=== PATIENT | female | born 1955 | race Caucasian/White ===

== ENCOUNTER 2022-05-18 09:13 | Outpatient (CLI) | payer MEDICARE, BC, SELFPAY | END 2022-05-18 09:14 | disposition home or self-care (01) | LOC: NFLDREF 05-19 00:17 | PROVIDERS: PCP Physician Assistant Medical; Referring Provider Physician Assistant Medical; Visit Provider Physician Assistant Medical | DX: Z00.00 Encounter for general adult medical examination without abnormal findings (principal); L98.9 Disorder of the skin and subcutaneous tissue, unspecified; E78.00 Pure hypercholesterolemia, unspecified | CPT/HCPCS: 80053; 80061 ==

== ENCOUNTER 2023-05-23 09:41 | Outpatient (CLI) | payer MEDICARE, BC, SELFPAY ==
--- OUTSIDE RECORDS SUMMARY | 2023-05-27 09:29 | XMS_ITS | Referral Summary ---
Author Name Unknown Organization [facility] Address [address] [place] [address] Care Team Providers Care Improvement Advisor Name Role Phone Amie Benavides Ilana Najera MD Primary Care Provider Allergies Active Allergy Reactions Criticality Noted Date Comments No Known Drug Allergy 03/19/2003 Medications Medication Sig Dispensed Refills Start Date End Date Status CALCIUM + D 400-133.3 MG-IU OR TABS 1 tablet daily 03/19/2003 Active VITAMIN E 400 IU OR CAPS 1 tablet daily 03/19/2003 Active FLEXERIL 10 MG OR TABS 1 po qhs 30 0 03/19/2003 Active Social History Tobacco Use Types Packs/Day Years Used Date Smoking Tobacco: Never Alcohol Use Standard Drinks/Week Comments Yes 0 (1 standard drink = 0.6 oz pur e alcohol) 1-2 per week Adolescent Education Answer Date Record ed Getting School Help Needed Not on file 11/21 Sex and Gender Information Value Date Recorded Sex Assigned at Female 02/04/2022 11:46 AM BUSINESS OBJECTS DEVELOPER Gender Identity Female 02/04/2022 11:46 AM BUSINESS OBJECTS DEVELOPER Sexual Orientation Straight 02/04/2022 11 :46 AM BUSINESS OBJECTS DEVELOPER Last Filed Vital Signs Vital Sign Reading Time Taken Comments Blood Pressure 151/89 05/16/2015 12:45 PM CDT Pulse 85 05/16/2015 12:45 PM CDT Temperature 36.4 ??C (97.6 ??F) 05/16/2015 10:12 AM C DT Respiratory Rate 20 05/16/2015 12:45 PM CDT Oxygen Saturation 96% 05/16/2015 12:30 PM CDT Inhaled Oxygen Concentration - - Weight 61.2 kg (135 lb) 05/16/2015 10:12 AM CDT Height 165.1 cm (5' 5) 05/16/2015 10:12 AM CDT Body Mass Index 22.47 05/16/2015 10:12 AM CDT Plan of Treatment Not on file Procedures Procedure Name Priority Date/Time Associated Diagnosis Comments GYNECOLOGIC CYTOLOGY Routine 04/01/2022 9:38 AM BUSINESS OBJECTS DEVELOPER Encounter for gynecological examination (general) (routine) without abnormal findings [ICD-10-CM] MA SCREENING BILATERAL W/ YUSUF Routine 02/23/2022 10:41 AM BUSINESS OBJECTS DEVELOPER Visit for screening mammogram from Last 3 Months or Most Recently Relevant to Health Maintenance Results * Gynecologic Cytology (PAP) (04/01/2022 9:38 AM BUSINESS OBJECTS DEVELOPER) Interpretation Negative for Intraepithelial Lesion or Malignancy (NILM) 04/05/2022 9:51 AM BUSINESS OBJECTS DEVELOPER [facility] Comment Papanicolaou Test Limitations: Cervical cytology is a screening test with limited sensitivity, and regular screening is critical for cancer prevention. Pap tests are primarily effective for the diagnosis/prevent ion of squamous cell carcinoma, not adenocarcinoma or other cancers. 04/05/2022 9:51 AM BUSINESS OBJECTS DEVELOPER [facility] Specimen Adequacy Satisfactory for evaluation, endocerv/transfor mation zone component absent, atrophy 04/05/2022 9:51 AM BUSINESS OBJECTS DEVELOPER [facility] Clinical Information post-menopausal 04/05/2022 9:51 AM BUSINESS OBJECTS DEVELOPER [facility] LMP/Menopause Date na 04/05/2022 9:51 AM BUSINESS OBJECTS DEVELOPER [facility] Reflex Testing Yes if ASCUS 04/05/19 9:51 AM BUSINESS OBJECTS DEVELOPER [facility] Previous Abnormal? No 04/05/2022 9:51 AM BUSINESS OBJECTS DEVELOPER [facility] Previous Abnormal Diagnosis lps 2019 neg 04/05/2022 9:51 AM BUSINESS OBJECTS DEVELOPER [facility] Performing Labs The technical component of this testing was completed at [facility] 04/05/2022 9:51 AM BUSINESS OBJECTS DEVELOPER [facility] Brushing CERVIX UTERI STRUCTURE / Unknown 04/01/2022 9:38 AM BUSINESS OBJECTS DEVELOPER 04/01/2022 3:44 PM BUSINESS OBJECTS DEVELOPER Amie ZENG [facility] [address] [facility], [address] [address], [facility] [phone] * MA Screen Bilateral w/Yusuf (02/23/2022 10:41 AM BUSINESS OBJECTS DEVELOPER) Anatomical Region Laterality Modality Breast Bilateral Mammography Impressions 02/23/2022 1:10 PM BUSINESS OBJECTS DEVELOPER IMPRESSION: ACR BI-RADS Category 1: Negative RECOMMENDED FOLLOW-UP: Annual routine screening mammogram The results and recommendations of this examination will be communicated to the patient. Karthikeyan Wooten MD Narrative 02/23/2022 1:10 PM BUSINESS OBJECTS DEVELOPER BILATERAL FULL FIELD DIGITAL SCREENING MAMMOGRAM WITH TOMOSYNTHESIS Performed on: 02/23/22 Compared to: 02/19/2021 and 10/14/2015 Technique: ??This study was evaluated with the assistance of Computer-Aided Detection. ??Breast Tomosynthesis was used in interpretation. Findings: The breasts are heterogeneously dense, which may obscure small masses. ??There is no radiographic evidence of malignancy. Amie Benavides MD IMG M AMMOGRAPHY ORDERABLES from Last 3 Months or Most Recently Relevant to Health Maintenance Care Teams Improvement Advisor Relationship Specialty Start Date End Date Amie Benavides MD [address] [place] [id number] PCP - General bone glue maker 12/23/16
--- OUTSIDE RECORDS SUMMARY | 2023-05-27 09:29 | XMS_ITS | Clinical Summary ---
Author Name Unknown Organization [facility] Address [address] [place] [address] Care Team Providers Care Entry Level Buyer Name Role Phone Amie Benavides Ilana Najera [...] Sex Assigned at Female 02/04/2022 11:46 AM INTELLIGENCE SUPPORT OFFICER Gender Identity Female 02/04/2022 11:46 AM INTELLIGENCE SUPPORT OFFICER Sexual Orientation Straight 02/04/2022 11 :46 AM INTELLIGENCE SUPPORT OFFICER Last Filed Vital Signs Vital Sign Reading [...] 05/16/2015 10:12 AM CDT Plan of Treatment Health Maintenance Due Date Last Done Comments ADVANCE CARE PLANNING 1955 ANNUAL REVIEW OF HM ORDERS 1955 CT COLONOGRAPHY 1955 DEXA 1955 FIT 1955 FLEX SIG 1955 GLUCOSE 1955 sDNA (Cologuard) 1955 COLONOSCOPY 04/18/1965 COLORECTAL CANCER SCREENING 04/18/1965 HEPATITIS C SCREENING 04/18/1973 LIPID 1995 RSV VACCINE ( & 60+) (1 - 1-dose 60+ series) 2015 FALL RISK ASSESSMENT 04/18/2020 MEDICARE ANNUAL WELLNESS VISIT 04/18/2020 Pneumococcal Vaccine: 65+ Years (1 of 1 - PCV) 04/18/2020 COVID-19 Vaccine ( season) 2022 12/11/2021, 12/10/2020, 05/09/2020, Additional history exists INFLUENZA VACCINE (#1) 2022 , 02/05/2021, 12/16/2019, Additional history exists PHQ-2 (once per calendar year) 2023 MAMMO SCREENING 02/24/2024 02/23/2022, /0 07/2021, 02/19/2020, Additional history exists DTAP/TDAP/TD IMMUNIZATION (2 - Td or Tdap) 01/17/2028 01/16/2018 ZOSTER IMMUNIZATION Completed 09/18/2019, 09/15/2019, 03/28/2019 PAP Discontinued 04/01/2022 HPV IMMUNIZATION Aged Out No longer e ligible based on patient's age to complete this topic IPV IMMUNIZATION Aged Out No longer e ligible based on patient's age to complete this topic MENINGITIS IMMUNIZATION Aged Out No l onger eligible based on patient's age to complete this topic RSV MONOCLONAL ANTIBODY Aged Out No l onger eligible based on patient's age to complete this topic Procedures Procedure Name Priority Date/Time Associated Diagnosis Comments GYNECOLOGIC CYTOLOGY Routine 04/01/2022 9:38 AM INTELLIGENCE SUPPORT OFFICER Encounter for gynecological examination (general) (routine) without abnormal findings [ICD-10-CM] MA SCREENING BILATERAL W/ YUSUF Routine 02/23/2022 10:41 AM INTELLIGENCE SUPPORT OFFICER Visit for screening mammogram from Last 3 Months or Most Recently Relevant to Health Maintenance Results * Gynecologic Cytology (PAP) (04/01/2022 9:38 AM INTELLIGENCE SUPPORT OFFICER) Interpretation Negative for Intraepithelial Lesion or Malignancy (NILM) 04/05/2022 9:51 AM INTELLIGENCE SUPPORT OFFICER [facility] Comment Papanicolaou Test Limitations: Cervical cytology is a screening test with limited sensitivity, and regular screening is critical for cancer prevention. Pap tests are primarily effective for the diagnosis/prevent ion of squamous cell carcinoma, not adenocarcinoma or other cancers. 04/05/2022 9:51 AM INTELLIGENCE SUPPORT OFFICER [facility] Specimen Adequacy Satisfactory for evaluation, endocerv/transfor mation zone component absent, atrophy 04/05/2022 9:51 AM INTELLIGENCE SUPPORT OFFICER [facility] Clinical Information post-menopausal 04/05/2022 9:51 AM INTELLIGENCE SUPPORT OFFICER [facility] LMP/Menopause Date na 04/05/2022 9:51 AM INTELLIGENCE SUPPORT OFFICER [facility] Reflex Testing Yes if ASCUS 04/05/19 9:51 AM INTELLIGENCE SUPPORT OFFICER [facility] Previous Abnormal? No 04/05/2022 9:51 AM INTELLIGENCE SUPPORT OFFICER [facility] Previous Abnormal Diagnosis lps 2019 neg 04/05/2022 9:51 AM INTELLIGENCE SUPPORT OFFICER [facility] Performing Labs The technical component of this testing was completed at [facility] 04/05/2022 9:51 AM INTELLIGENCE SUPPORT OFFICER [facility] Brushing CERVIX UTERI STRUCTURE / Unknown 04/01/2022 9:38 AM INTELLIGENCE SUPPORT OFFICER 04/01/2022 3:44 PM INTELLIGENCE SUPPORT OFFICER Amie MUSTAFA - LOVE Z[facility] [address] [facility], [address] [place] [phone], [facility] [phone] * MA Screen Bilateral w/Yusuf (02/23/2022 10:41 AM INTELLIGENCE SUPPORT OFFICER) Anatomical Region Laterality Modality Breast Bilateral Mammography Impressions 02/23/2022 1:10 PM INTELLIGENCE SUPPORT OFFICER IMPRESSION: ACR BI-RADS Category 1: Negative RECOMMENDED FOLLOW-UP: Annual routine screening mammogram The results and recommendations of this examination will be communicated to the patient. Karthikeyan Wooten MD Narrative 02/23/2022 1:10 PM INTELLIGENCE SUPPORT OFFICER BILATERAL FULL FIELD DIGITAL SCREENING MAMMOGRAM WITH TOMOSYNTHESIS Performed on: 02/23/22 Compared to: 02/19/2021 and 10/14/2015 Technique: ??This study was evaluated with the assistance of Computer-Aided Detection. ??Breast Tomosynthesis was used in interpretation. Findings: The breasts are heterogeneously dense, which may obscure small masses. ??There is no radiographic evidence of malignancy. Amie Ilana Benavides MD IMG M AMMOGRAPHY ORDERABLES from Last 3 Months or Most Recently Relevant to Health Maintenance Care Teams Entry Level Buyer Relationship Specialty Start Date End Date Amie Benavides MD [address] [id number] PCP - General occupational health physician 12/23/16
--- OUTSIDE RECORDS SUMMARY | 2023-05-27 09:29 | XMS_ITS | Continuity of Care Document ---
Author Name [facility] Care Team Providers Care Cryogenics Repairer Name Role Phone [facility] Unavailable Unavailable Diagnostic Reports Report Value Date Source Wrist Lt Comp Min 3 Vw PROCEDURE: Wrist Lt Comp Min 3 Vw HISTORY: Left Hand/Wrist/Navicular Pain, S/P Trauma ([facility] 04/23/19). COMPARISON: None TECHNIQUE: 4 (AP, lateral, scaphoid and oblique) views of the left wrist. FINDINGS: Nondisplaced hairline fracture of the posterior distal diaphysis of the radius noted. No other fractures or dislocations. No inflammatory or arthritic changes. Joint spaces are adequately maintained. No effusions. IMPRESSION: Nondisplaced hairline fracture of the posterior distal diaphysis of the radius. Workstation ID: [id number] Signed by: Ye Gallagher on 04/25/2019 11:38 04/25/2019 [facility] Hand Lt Comp Min 3 Vw PROCEDURE: Hand Lt Comp Min 3 Vw HISTORY: Left Hand/Wrist/Navicular Pain, S/P Trauma ([facility] 04/23/19). COMPARISON: None TECHNIQUE: 3 (AP, lateral, and oblique) views of the left hand. FINDINGS: No fractures or dislocations. No inflammatory changes. Joint space narrowing and sclerosis noted at the first metacarpal carpal joint space. No effusions. 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 Workstation ID: [id number] Signed by: Ye Gallagher on 04/25/2019 11:39 04/25/2019 [facility] Encounters Location Location Details Encounter Type Encounter Number Reason For Visit Attending Provider ADM Date DC Date Status Source 45 [address] [facility] Outpatient [id number] Sandrita Kincaid 04/24 Active [facility] Social History Social History Date Source Social History TypeResponse 04/26/2019 45 [facility]
== END 2023-05-23 09:42 | disposition home or self-care (01) ==
LOC: NFLDREF 05-27 09:27
PROVIDERS: PCP Physician Assistant Medical; Referring Provider Physician Assistant Medical; Visit Provider Physician Assistant Medical
DX: E78.00 Pure hypercholesterolemia, unspecified (principal); Z13.228 Encounter for screening for other metabolic disorders
CPT/HCPCS: 80053; 80061

== ENCOUNTER 2024-05-22 09:19 | Outpatient (CLI) | payer MEDICARE, BC, SELFPAY | END 2024-05-22 09:20 | disposition home or self-care (01) | LOC: NFLDREF 05-25 23:56 | PROVIDERS: PCP Physician Assistant Medical; Referring Provider Physician Assistant Medical; Visit Provider Physician Assistant Medical | DX: G47.9 Sleep disorder, unspecified (principal); Z13.6 Encounter for screening for cardiovascular disorders; Z13.29 Encounter for screening for other suspected endocrine disorder; Z13.9 Encounter for screening, unspecified | CPT/HCPCS: 80053; 80061; 84443 ==